=== PATIENT | male | born 1955 | race African-American/Black ===

== ENCOUNTER 2023-11-25 18:16 | Inpatient (IN) | payer MEDICARE, OTHER ==
[~2023-11-25] VITALS: Ht 182.9 cm; Wt 78.9 kg
[2023-11-25] MEDS ORDERED: LORA-258 PO (18:37)
[2023-11-25] MEDS ORDERED: QUET25TA PO (18:37)
[2023-11-25] MEDS ORDERED: NICO-625 TD (18:37)
[2023-11-25] MEDS ORDERED: ACET325C7 PO (18:37)
[2023-11-25] MEDS ORDERED: CHOL2000 PO (18:37)
[2023-11-25] MEDS ORDERED: DIPH25TA62 PO (18:37)
[2023-11-25] MEDS ORDERED: IBUP-1953 PO (18:37)
[2023-11-25] MEDS ORDERED: ASCO500C18 PO (18:37)
[2023-11-25] MEDS ORDERED: MAG30ORA PO (18:37)
[2023-11-25] MEDS ORDERED: MULT-213 PO (18:37)
[2023-11-25] MEDS ORDERED: FOLI1TAB27 PO (18:37)
[2023-11-25] MEDS ORDERED: BISM262O28 PO (18:37)
[2023-11-25] MEDS ORDERED: MAGN400O6 PO (18:37)
[2023-11-25] MEDS ORDERED: GUAI237L83 PO (18:37)
[2023-11-25] MEDS ORDERED: THIA100T74 PO (18:37)
[2023-11-25 18:58] LABS: BASOPHILS % (AUTO) 1.3 % (0.0-2.0); CALCIUM 9.4 mg/dL (8.5-10.1); CARBON DIOXIDE 30 mmol/L (21-32); CHLORIDE 107 mmol/L (98-107); DIFFERENTIAL COMMENT 1; EOSINOPHILS # (AUTO) 0.2 K/uL (0.0-0.7); EOSINOPHILS % (AUTO) 4.5 % (0.0-7.0); GLUCOSE 112 mg/dL (74-106); HEMATOCRIT 43.3 % (36.7-47.1); HEMOGLOBIN 14.4 g/dL (12.5-16.3); LYMPHOCYTES # (AUTO) 1.3 K/uL (0.8-4.8); LYMPHOCYTES % (AUTO) 33.9 % (20.5-51.5); MEAN CORPUSCULAR HEMOGLOBIN 28.6 uug (23.8-33.4); MEAN CORPUSCULAR HGB CONC 33 g/dL (32.5-36.3); MEAN CORPUSCULAR VOLUME 85.7 fL (73.0-96.2); MONOCYTES # (AUTO) 0.4 K/uL (0.1-1.30); MONOCYTES % (AUTO) 10.4 % (0.0-11.0); NEUTROPHILS # (AUTO) 1.9 K/uL (1.8-8.9); NEUTROPHILS % (AUTO) 49.9 % (38.5-71.5); PLATELET COUNT (AUTO) 154 K/uL (152-348); POTASSIUM 4.5 mmol/L (3.5-5.1); RED BLOOD CELL COUNT(AUTO) 5.05 MIL/uL (4.06-5.63); SODIUM SERUM 144 mmol/L (136-145); UREA NITROGEN, BLOOD 15 mg/dL (7-18); WHITE BLOOD COUNT (AUTO) 3.8 K/uL (3.6-10.2)
[2023-11-25 19:04] LABS: ACETAMINOPHEN < 2.0 ug/mL (10-30); ALANINE AMINOTRANSFERASE 24 U/L (16-63); ALBUMIN 3.8 g/dL (3.4-5.0); ALKALINE PHOSPHATASE 68 U/L (50-136); ASPARTATE AMINOTRANSFERASE 26 U/L (15-37); BILIRUBIN,DIRECT 0.1 mg/dL (0.0-0.2); BILIRUBIN,TOTAL 0.5 mg/dL (0.2-1.0); TOTAL PROTEIN, SERUM 7.5 g/dL (6.4-8.2)
[2023-11-25 19:05] LABS: ETHANOL < 3 MG/DL (0-10)
[2023-11-25 19:17] LABS: *BILIRUBIN,URIN NEGATIVE (NEGATIVE); *BLOOD, URINE NEGATIVE (NEGATIVE); *CLARITY,URINE CLEAR (CLEAR); *COLOR,URINE YELLOW (YELLOW); *KETONES,URINE TRACE (NEGATIVE); *PROTEIN,URINE NEGATIVE (NEGATIVE); *UROBILINOGEN,URINE 0.2 E.U./dl (NORMAL); LEUKOCYTE ESTERASE ,URINE NEGATIVE (NEGATIVE); NITRITE, URINE NEGATIVE (NEGATIVE); PH,URINE 5.5 (5.0-8.0); UGLUCOSE NEGATIVE (NEGATIVE)
[2023-11-25 20:39] LABS: *AMPHETAMINE, URINE NEGATIVE (NEGATIVE); *BARBITURATE, URINE NEGATIVE (NEGATIVE); *BENZODIAZEPINE, URINE NEGATIVE (NEGATIVE); *CANNABINOID, URINE NEGATIVE (NEGATIVE); *COCCAINE, URINE NEGATIVE (NEGATIVE); *OPIATE, URINE NEGATIVE (NEGATIVE); *PHENCYCLIDINE SCREEN,URINE NEGATIVE (NEGATIVE)
[2023-11-25 20:46] LABS: BACTERIA,URINE NONE SEEN /HPF (NONE SEEN); RBC,URINE NONE SEEN /HPF (0-3); SQUAMOUS EPITHELIAL CELL,UR FEW /HPF (NONE SEEN); WBC,URINE 0-3 /HPF (0-3)
[2023-11-25 20:49] LABS: FENTANYL, URINE NEGATIVE (NEGATIVE)
[2023-11-25 23:15] VITALS: BP 148/86; TEMP 97.7; O2SAT 100
[2023-11-25] MEDS ORDERED: MAG HYDROX/AL HYDROX/SIMETH 30 ML LIQUID UDC PO PRN (23:15)
[2023-11-25] MEDS: LORAZEPAM 1 MG TABLET PO PRN (23:24)
[2023-11-26] MEDS: ZOLPIDEM 5 MG TABLET PO PRN (02:07)
[2023-11-26 07:27] LABS: ALBUMIN 3.6 g/dL (3.4-5.0); BILIRUBIN,TOTAL 0.5 mg/dL (0.2-1.0); CALCIUM 9.3 mg/dL (8.5-10.1); CREATININE 1.1 mg/dL (0.6-1.3); POTASSIUM 4.3 mmol/L (3.5-5.1)
[2023-11-26 07:52] VITALS: BP 141/94; TEMP 98.2; O2SAT 100
[2023-11-26] MEDS ORDERED: NICOTINE 21 MG/24HR PATCH TD SCH (09:00)
[2023-11-26] MEDS ORDERED: LORA0.5T48 PO (11:15)
[2023-11-26] MEDS ORDERED: CHOLECALCIFEROL 400 UNITS TABLET PO SCH (11:30)
[2023-11-26] MEDS: MULTIVITAMINS,THERAPEUTIC TABLET PO SCH (11:30)
[2023-11-26] MEDS: NICOTINE 14 MG/24HR PATCH TD SCH (11:30)
[2023-11-26] MEDS: THIAMINE HCL 100 MG TABLET PO SCH (11:30)
[2023-11-26] MEDS ORDERED: BISMUTH SUBSALICYLATE 262 MG/15 ML UDC PO PRN (11:30)
[2023-11-26] MEDS: FOLIC ACID 1 MG TABLET PO SCH (13:31)
[2023-11-26] MEDS: ASCORBIC ACID 500 MG TABLET PO SCH (13:31)
[2023-11-26] MEDS: SERTRALINE HCL 50 MG TABLET PO SCH (13:32)
[2023-11-26 16:10] VITALS: BP 128/93; TEMP 97.7; O2SAT 95
[2023-11-26 20:00] VITALS: BP 137/88; TEMP 97.7; O2SAT 98
[2023-11-26] MEDS: QUETIAPINE FUMARATE 25 MG TABLET PO SCH (20:45)
[2023-11-27 08:22] VITALS: BP 137/96; TEMP 98.5; O2SAT 98
[2023-11-27] MEDS: CHOLECALCIFEROL 1,000 UNIT TABLET PO SCH (08:49)
[2023-11-27 16:05] VITALS: BP 126/91; TEMP 98.3; O2SAT 98
[2023-11-27] MEDS: QUETIAPINE FUMARATE 25 MG TABLET PO SCH (20:15)
[2023-11-28 08:37] VITALS: BP 128/91; TEMP 98.2; O2SAT 99
[2023-11-28 16:24] VITALS: BP 138/96; TEMP 98.1; O2SAT 98
[2023-11-29] MEDS: LORAZEPAM 1 MG TABLET PO PRN (02:51)
[2023-11-29 07:53] VITALS: BP 108/81; TEMP 98; O2SAT 98
[2023-11-29 20:00] VITALS: BP 140/80; TEMP 97.9; O2SAT 95
[2023-11-29] MEDS ORDERED: QUETIAPINE FUMARATE 25 MG TABLET PO SCH (21:00)
[2023-11-30] MEDS: QUETIAPINE FUMARATE 100 MG TABLET PO SCH (01:08)
[2023-11-30 09:39] VITALS: BP 123/79; TEMP 98; O2SAT 96
[2023-11-30] MEDS: HYDROXYZINE PAMOATE 25 MG CAPSULE PO PRN (12:35)
[2023-11-30 15:12] VITALS: BP 126/79; TEMP 98; O2SAT 99
[2023-11-30 20:00] VITALS: BP 131/92; TEMP 99.1; O2SAT 99
[2023-12-01 07:56] VITALS: BP 130/81; TEMP 98; O2SAT 98
[2023-12-01] MEDS: QUETIAPINE FUMARATE 25 MG TABLET PO SCH (08:28)
[2023-12-01 15:46] VITALS: BP 134/84; TEMP 98.4; O2SAT 99
[2023-12-01 20:00] VITALS: BP 137/89; TEMP 97.7; O2SAT 96
[2023-12-02 08:03] VITALS: BP 114/71; TEMP 98.4; O2SAT 99
[2023-12-02 15:01] VITALS: BP 135/78; TEMP 98.2; O2SAT 99
[2023-12-02 19:51] VITALS: BP 141/69; TEMP 98; O2SAT 98
[2023-12-02] MEDS: QUETIAPINE FUMARATE 100 MG TABLET PO SCH (20:11)
[2023-12-03 07:48] VITALS: BP 125/75; TEMP 98.2; O2SAT 100
[2023-12-03 15:43] VITALS: BP 133/71; TEMP 98.2; O2SAT 100
[2023-12-03] MEDS: IBUPROFEN 400 MG TABLET PO PRN (19:39)
[2023-12-03 20:23] VITALS: BP 128/68; TEMP 98.1; O2SAT 99
[2023-12-03] MEDS: LORAZEPAM 2 MG/1 ML VIAL IM ONE (22:25)
[2023-12-03] MEDS: HALOPERIDOL LACTATE 5 MG/1 ML VIAL IM ONE (22:25)
[2023-12-03] MEDS: diphenhydrAMINE 50 MG/1 ML VIAL IM ONE (22:26)
[2023-12-03 23:30] VITALS: BP 108/66; O2SAT 98
[2023-12-04 07:49] VITALS: BP 142/82; TEMP 97.6; O2SAT 97
[2023-12-04 16:14] VITALS: BP 130/71; TEMP 97.9; O2SAT 97
[2023-12-04 20:03] VITALS: BP 140/76; TEMP 98.1; O2SAT 96
[2023-12-05 07:59] VITALS: BP 118/83; TEMP 98.3; O2SAT 97
[2023-12-05 16:39] VITALS: BP 151/92; TEMP 98.1; O2SAT 97
[2023-12-05 20:12] VITALS: BP 128/81; TEMP 98; O2SAT 98
[2023-12-06 07:48] VITALS: BP 129/87; TEMP 98.4; O2SAT 97
[2023-12-06] MEDS: QUETIAPINE FUMARATE 25 MG TABLET PO SCH (08:16)
[2023-12-06] MEDS: DIVALPROEX SPRINKLE 125 MG CAP.SPRINK PO SCH (08:16)
[2023-12-06 15:53] VITALS: BP 144/91; TEMP 98.2; O2SAT 97
[2023-12-07 08:27] VITALS: BP 120/80; TEMP 98; O2SAT 100
[2023-12-07] MEDS: ACETAMINOPHEN 325 MG TABLET PO PRN (10:05)
[2023-12-07 15:26] VITALS: BP 144/80; TEMP 98; O2SAT 100
[2023-12-07 20:15] VITALS: BP 130/80; TEMP 98.1; O2SAT 99
[2023-12-08 07:52] VITALS: BP 119/79; TEMP 98; O2SAT 100
[2023-12-08] MEDS: DIVALPROEX SPRINKLE 125 MG CAP.SPRINK PO SCH (08:47)
[2023-12-08 15:17] VITALS: BP 113/74; TEMP 98.2; O2SAT 99
[2023-12-08 20:12] VITALS: BP 133/86; TEMP 98.1; O2SAT 100
[2023-12-09 07:44] VITALS: BP 127/79; TEMP 97.2; O2SAT 98
[2023-12-09 16:00] VITALS: BP 139/72; TEMP 97.6; O2SAT 98
[2023-12-09 20:00] VITALS: BP 127/84; TEMP 97.9; O2SAT 98
[2023-12-09] MEDS: QUETIAPINE FUMARATE 100 MG TABLET PO SCH (21:01)
[2023-12-10 08:02] VITALS: BP 131/96; TEMP 98; O2SAT 99
[2023-12-10] MEDS: QUETIAPINE FUMARATE 25 MG TABLET PO SCH (08:58)
[2023-12-10 15:22] VITALS: BP 116/78; TEMP 98; O2SAT 98
[2023-12-10 20:00] VITALS: BP 131/91; TEMP 97.8; O2SAT 94
[2023-12-11 08:25] VITALS: BP 127/89; TEMP 98.4; O2SAT 96
[2023-12-11 17:03] VITALS: BP 131/83; TEMP 98.2; O2SAT 96
[2023-12-11] MEDS: OLANZAPINE 10 MG VIAL IM ONE (17:47)
[2023-12-11 22:44] VITALS: BP 104/76; TEMP 97.8; O2SAT 100
[2023-12-12 08:35] VITALS: BP 117/81; TEMP 98.4; O2SAT 98
[2023-12-12] MEDS: OLANZAPINE ZYDIS 5 MG TAB.RAPDIS PO SCH ×2 (10:45→20:25)
[2023-12-12 15:59] VITALS: BP 107/76; TEMP 98.1; O2SAT 97
[2023-12-12 20:09] VITALS: BP 119/85; TEMP 98.1; O2SAT 95
[2023-12-13 07:45] VITALS: BP 121/70; TEMP 98; O2SAT 98
[2023-12-13 15:57] VITALS: BP 129/91; TEMP 98.2; O2SAT 98
[2023-12-13 20:31] VITALS: BP 126/76; TEMP 98.1; O2SAT 97
[2023-12-14 08:17] VITALS: BP 125/92; TEMP 98; O2SAT 96
[2023-12-14] MEDS: DIVALPROEX SPRINKLE 125 MG CAP.SPRINK PO SCH (09:18)
[2023-12-14 15:49] VITALS: BP 123/82; TEMP 98; O2SAT 98
[2023-12-14 19:52] VITALS: BP 120/78; TEMP 98.1; O2SAT 96
[2023-12-14] MEDS: MELATONIN 3 MG TABLET PO SCH (20:23)
[2023-12-15 07:40] VITALS: BP 122/81; TEMP 98; O2SAT 100
[2023-12-15 15:40] VITALS: BP 131/83; TEMP 98; O2SAT 99
[2023-12-15 20:00] VITALS: BP 134/87; TEMP 97.7
[2023-12-15] MEDS: OLANZAPINE ZYDIS 5 MG TAB.RAPDIS PO SCH (20:02)
[2023-12-15] MEDS: MELATONIN 3 MG TABLET PO SCH (20:03)
[2023-12-15 20:15] VITALS: O2SAT 100
[2023-12-16 07:57] VITALS: BP 120/86; TEMP 98; O2SAT 99
[2023-12-16 15:16] VITALS: BP 117/71; TEMP 98; O2SAT 98
[2023-12-16 20:00] VITALS: BP 135/86; O2SAT 97
[2023-12-17 08:05] VITALS: BP 156/99; TEMP 98; O2SAT 98
[2023-12-17 16:22] VITALS: BP 102/70; TEMP 98; O2SAT 98
[2023-12-17 20:00] VITALS: BP 130/81; TEMP 97.5; O2SAT 100
[2023-12-18 08:17] VITALS: BP 125/81; TEMP 97.6; O2SAT 98
[2023-12-18 17:39] VITALS: BP 135/88; TEMP 97.8; O2SAT 97
[2023-12-19 07:55] VITALS: BP 122/63; TEMP 98.3; O2SAT 98
[2023-12-19 08:11] LABS: ALBUMIN 3.2 g/dL (3.4-5.0); BILIRUBIN,TOTAL 0.6 mg/dL (0.2-1.0); CALCIUM 9.1 mg/dL (8.5-10.1); CREATININE 0.9 mg/dL (0.6-1.3); MAGNESIUM 2.1 mg/dL (1.8-2.4); PHOSPHOROUS 4.6 mg/dL (2.5-4.9); POTASSIUM 3.8 mmol/L (3.5-5.1); TOTAL PROTEIN, SERUM 6.6 g/dL (6.4-8.2)
[2023-12-19 08:15] LABS: THYROID STIMULATING HORMONE 1.076 mIU/mL (0.358-3.740)
[2023-12-19 08:35] LABS: BASOPHILS % (AUTO) 1.2 % (0.0-2.0); EOSINOPHILS # (AUTO) 0.1 K/uL (0.0-0.7); EOSINOPHILS % (AUTO) 3.9 % (0.0-7.0); HEMATOCRIT 42.2 % (36.7-47.1); LYMPHOCYTES # (AUTO) 1.4 K/uL (0.8-4.8); LYMPHOCYTES % (AUTO) 54.5 % (20.5-51.5); MEAN CORPUSCULAR HEMOGLOBIN 28.7 uug (23.8-33.4); MEAN CORPUSCULAR HGB CONC 33 g/dL (32.5-36.3); MEAN CORPUSCULAR VOLUME 86.6 fL (73.0-96.2); MONOCYTES # (AUTO) 0.3 K/uL (0.1-1.30); MONOCYTES % (AUTO) 13.7 % (0.0-11.0); NEUTROPHILS # (AUTO) 0.7 K/uL (1.8-8.9); NEUTROPHILS % (AUTO) 26.7 % (38.5-71.5); PLATELET COUNT (AUTO) 131 K/uL (152-348); RED BLOOD CELL COUNT(AUTO) 4.87 MIL/uL (4.06-5.63); RED CELL DISTRIBUTION WIDTH 13.8 % (12.1-16.2); WHITE BLOOD COUNT (AUTO) 2.5 K/uL (3.6-10.2)
[2023-12-19 08:53] LABS: DIFFERENTIAL COMMENT 1
[2023-12-19 16:07] LABS: EOSINOPHILS % (MANUAL) 1 % (0-8); LYMPHOCYTES % (MANUAL) 62 % (20-40); MONOCYTES % (MANUAL) 11 % (2-10); NEUTROPHILS % (MANUAL) 26 % (42-75); PLATELET ESTIMATE DECREASED
[2023-12-19 16:08] LABS: ANISOCYTOSIS 1+; OVALOCYTES 1+
[2023-12-19 16:42] VITALS: BP 123/86; TEMP 98.1; O2SAT 98
[2023-12-19 20:23] VITALS: BP 109/80; TEMP 98.1; O2SAT 98
[2023-12-20 10:15] VITALS: BP 124/77; TEMP 98.2; O2SAT 98
[2023-12-20 19:50] VITALS: BP 117/82; TEMP 98.1; O2SAT 99
[2023-12-21 08:06] VITALS: BP 113/75; TEMP 98; O2SAT 98
[2023-12-21 15:27] VITALS: BP 120/90; TEMP 98; O2SAT 98
[2023-12-21 19:42] VITALS: BP 108/73; TEMP 98.1; O2SAT 99
[2023-12-22 07:30] VITALS: BP 115/74; TEMP 98; O2SAT 98
[2023-12-22 15:22] VITALS: BP 114/68; TEMP 98; O2SAT 100
[2023-12-22 20:00] VITALS: BP 123/75; TEMP 96.3; O2SAT 100
[2023-12-23 07:53] VITALS: BP 153/84; TEMP 98; O2SAT 99
[2023-12-23 15:08] VITALS: BP 106/63; TEMP 98; O2SAT 96
[2023-12-23] MEDS: TRAZODONE 50 MG TABLET PO SCH (20:22)
[2023-12-24 07:56] VITALS: BP 138/91; TEMP 98; O2SAT 100
[2023-12-24 15:15] VITALS: BP 139/85; TEMP 98; O2SAT 99
[2023-12-24 20:00] VITALS: BP 120/81; TEMP 97.7; O2SAT 96
[2023-12-25 07:30] VITALS: BP 112/80; TEMP 97.8; O2SAT 97
[2023-12-25 16:30] VITALS: BP 116/81; TEMP 98; O2SAT 98
[2023-12-25 20:00] VITALS: BP 124/80; TEMP 98; O2SAT 99
[2023-12-26 07:54] VITALS: BP 124/76; TEMP 97.7; O2SAT 98
[2023-12-26 08:16] LABS: ALBUMIN 3.4 g/dL (3.4-5.0); BILIRUBIN,TOTAL 0.5 mg/dL (0.2-1.0); CALCIUM 8.6 mg/dL (8.5-10.1); POTASSIUM 3.8 mmol/L (3.5-5.1)
[2023-12-26 08:24] LABS: EOSINOPHILS # (AUTO) 0.1 K/uL (0.0-0.7); EOSINOPHILS % (AUTO) 1.8 % (0.0-7.0); HEMATOCRIT 43.3 % (36.7-47.1); HEMOGLOBIN 13.8 g/dL (12.5-16.3); LYMPHOCYTES # (AUTO) 1.4 K/uL (0.8-4.8); LYMPHOCYTES % (AUTO) 38.3 % (20.5-51.5); MEAN CORPUSCULAR HEMOGLOBIN 27.8 uug (23.8-33.4); MEAN CORPUSCULAR HGB CONC 32 g/dL (32.5-36.3); MONOCYTES # (AUTO) 0.5 K/uL (0.1-1.30); MONOCYTES % (AUTO) 12.8 % (0.0-11.0); NEUTROPHILS # (AUTO) 1.7 K/uL (1.8-8.9); NEUTROPHILS % (AUTO) 46.1 % (38.5-71.5); PLATELET COUNT (AUTO) 131 K/uL (152-348); RED BLOOD CELL COUNT(AUTO) 4.97 MIL/uL (4.06-5.63); WHITE BLOOD COUNT (AUTO) 3.8 K/uL (3.6-10.2)
[2023-12-26 16:30] VITALS: BP 128/83; TEMP 97.8; O2SAT 98
[2023-12-26] MEDS: MAGNESIUM HYDROXIDE 30 ML LIQUID UDC PO PRN (18:18)
[2023-12-26 20:05] VITALS: BP 147/81; TEMP 98.1; O2SAT 96
[2023-12-27 08:20] VITALS: BP 123/80; TEMP 98.3; O2SAT 98
[2023-12-27 16:10] VITALS: BP 98/76; TEMP 98; O2SAT 98
[2023-12-27 19:40] VITALS: BP 135/81; TEMP 98.1; O2SAT 100
[2023-12-28 07:56] VITALS: BP 120/82; TEMP 98.2; O2SAT 100
[2023-12-28 15:43] VITALS: BP 111/66; TEMP 98.2; O2SAT 99
[2023-12-28 19:59] VITALS: BP 126/78; TEMP 98.1; O2SAT 98
[2023-12-29 07:55] VITALS: BP 116/81; TEMP 98; O2SAT 99
[2023-12-29 16:35] VITALS: BP 119/65; TEMP 98; O2SAT 99
[2023-12-29 20:01] VITALS: BP 138/84; TEMP 98.1; O2SAT 96
[2023-12-30 07:54] VITALS: BP 125/65; TEMP 98; O2SAT 98
[2023-12-30 15:02] VITALS: BP 117/73; TEMP 98; O2SAT 100
[2023-12-30 20:00] VITALS: BP 114/78; TEMP 98.8; O2SAT 98
[2023-12-31 07:48] VITALS: BP 147/82; TEMP 98; O2SAT 98
[2023-12-31 16:05] VITALS: BP 111/76; TEMP 97.8; O2SAT 97
[2023-12-31] MEDS: TRAZODONE 50 MG TABLET PO SCH (20:30)
[2024-01-01 08:45] VITALS: BP 104/66; TEMP 97.9; O2SAT 97
[2024-01-01 15:50] VITALS: BP 109/88; TEMP 97.7; O2SAT 97
[2024-01-01 20:00] VITALS: BP 119/81; TEMP 98; O2SAT 100
[2024-01-02 08:44] VITALS: BP 101/76; TEMP 98.2; O2SAT 97
[2024-01-02 16:12] VITALS: BP 136/74; TEMP 98.1; O2SAT 97
[2024-01-02 20:07] VITALS: BP 130/70; TEMP 98.1; O2SAT 96
[2024-01-03 07:59] VITALS: BP 129/79; TEMP 98.1; O2SAT 97
[2024-01-03] MEDS: OLANZAPINE ZYDIS 5 MG TAB.RAPDIS PO SCH (08:25)
== END 2024-01-03 13:30 | DRG 885 ==
LOC: EDSEX 18:17 → ER 18:17 → GPS 22:57
PROVIDERS: ADMIT Psychiatry & Neurology Psychiatry; ATTEND Nurse Practitioner Acute Care
DX: F29 Unspecified psychosis not due to a substance or known physiological condition (principal); F03.93 Unspecified dementia, unspecified severity, with mood disturbance; F03.94 Unspecified dementia, unspecified severity, with anxiety; F03.911 Unspecified dementia, unspecified severity, with agitation; F17.210 Nicotine dependence, cigarettes, uncomplicated; E11.9 Type 2 diabetes mellitus without complications; F20.0 Paranoid schizophrenia; F80.89 Other developmental disorders of speech and language; Z75.1 Person awaiting admission to adequate facility elsewhere; D72.819 Decreased white blood cell count, unspecified; D72.820 Lymphocytosis (symptomatic); E55.9 Vitamin D deficiency, unspecified
CPT/HCPCS: 36415; 70030-TC; 71045; 80164; 83735; 84100; 84443; 85025; 93005; G0480; J1200; J1630; J2060; J2358